=== PATIENT | female | born 1940 | race Caucasian/White ===

== ENCOUNTER 2024-11-09 09:14 | Inpatient (IN) | payer MEDICARE ==
[~2024-11-09] VITALS: Ht 157.5 cm; Wt 56.7 kg
[2024-11-09 09:55] LABS: PLATELET COUNT (AUTO) 268 K/uL (179-408); RED BLOOD CELL COUNT(AUTO) 5.02 MIL/uL (3.63-4.92); RED CELL DISTRIBUTION WIDTH 17.6 % (12.3-17.7); WHITE BLOOD COUNT (AUTO) 14.2 K/uL (3.8-11.8)
[2024-11-09] MEDS ORDERED: HYDROCODONE/APAP 5-325MG TABLET ONE (10:01)
[2024-11-09] MEDS: HYDROCODONE/APAP 5-325MG TABLET PO ONE (10:03)
[2024-11-09] MEDS ORDERED: LEVO75TA7 PO (10:05)
[2024-11-09] MEDS ORDERED: ASPI81TA31 PO (10:05)
[2024-11-09] MEDS ORDERED: ZOLP5TAB8 PO (10:05)
[2024-11-09] MEDS ORDERED: MELO-105 PO (10:05)
[2024-11-09] MEDS ORDERED: TRIA1CAP6 PO (10:05)
[2024-11-09 10:06] LABS: CREATININE 0.9 mg/dL (0.6-1.3); SODIUM SERUM 141 mmol/L (136-145); UREA NITROGEN, BLOOD 15 mg/dL (7-18)
[2024-11-09 10:12] LABS: ASPARTATE AMINOTRANSFERASE 12 U/L (15-37); TOTAL PROTEIN, SERUM 7.2 g/dL (6.4-8.2)
[2024-11-09] MEDS ORDERED: CHOL500062 PO (10:16)
[2024-11-09] MEDS ORDERED: NEOMY/BACITRA/POLYMYXIN B OINT UD PACKET TP ONE (11:12)
[2024-11-09] MEDS: MORPHINE SULFATE 4 MG/1 ML DISP.SYRIN IV ONE (15:15)
[2024-11-09] MEDS ORDERED: ONDANSETRON 4 MG/2 ML VIAL IV PRN (15:30)
[2024-11-09] MEDS ORDERED: MORPHINE SULFATE 4 MG/1 ML DISP.SYRIN ONE (17:10)
[2024-11-09] MEDS: ONDANSETRON 4 MG/2 ML VIAL IV ONE (17:18)
[2024-11-09 18:33] VITALS: BP 157/67; TEMP 98.1; O2SAT 95
[2024-11-09 19:00] VITALS: BP 144/55; TEMP 97.8; O2SAT 95
[2024-11-09] MEDS: MORPHINE SULFATE 2 MG/1 ML DISP.SYRIN IV PRN (21:38)
[2024-11-09] MEDS: IV NS 1000 ML 1,000 ML IV PRN (21:38)
[2024-11-09] MEDS: ENOXAPARIN SODIUM 40 MG/0.4 ML DISP.SYRIN SQ SCH (22:45)
[2024-11-10 06:35] VITALS: BP 121/77; TEMP 97.9; O2SAT 94
[2024-11-10 06:46] LABS: PLATELET COUNT (AUTO) 240 K/uL (179-408); RED BLOOD CELL COUNT(AUTO) 4.72 MIL/uL (3.63-4.92); RED CELL DISTRIBUTION WIDTH 17.5 % (12.3-17.7); WHITE BLOOD COUNT (AUTO) 12.4 K/uL (3.8-11.8)
[2024-11-10 07:10] LABS: CREATININE 0.7 mg/dL (0.6-1.3); SODIUM SERUM 141 mmol/L (136-145); UREA NITROGEN, BLOOD 11 mg/dL (7-18)
[2024-11-10] MEDS ORDERED: MELOXICAM 7.5 MG TABLET PO SCH (08:30)
[2024-11-10] MEDS: CHOLECALCIFEROL 1,000 UNIT TABLET PO SCH (08:58)
[2024-11-10] MEDS: ASPIRIN 81 MG TAB.CHEW PO SCH (08:58)
[2024-11-10] MEDS ORDERED: [UNRECOGNIZED DRUG - OTHER] PO SCH (09:00)
[2024-11-10] MEDS ORDERED: ZOLP6.252 PO (10:52)
[2024-11-10] MEDS: LEVOTHYROXINE SODIUM 75 MCG TABLET PO SCH (10:56)
[2024-11-10] MEDS: HYDROCODONE/APAP 5-325MG TABLET PO PRN (15:21)
[2024-11-10 16:14] VITALS: BP 141/62; TEMP 98.1; O2SAT 95
[2024-11-10 19:47] VITALS: BP 144/47; TEMP 98.2; O2SAT 91
[2024-11-11 05:00] VITALS: BP 158/65; TEMP 97.9; O2SAT 93
[2024-11-11 06:33] LABS: PLATELET COUNT (AUTO) 229 K/uL (179-408); RED BLOOD CELL COUNT(AUTO) 4.43 MIL/uL (3.63-4.92); RED CELL DISTRIBUTION WIDTH 17.7 % (12.3-17.7); WHITE BLOOD COUNT (AUTO) 11.2 K/uL (3.8-11.8)
[2024-11-11] MEDS ORDERED: VANCOMYCIN 1000 MG VIAL ONE (06:42)
[2024-11-11 06:43] LABS: CREATININE 0.6 mg/dL (0.6-1.3); SODIUM SERUM 140 mmol/L (136-145); UREA NITROGEN, BLOOD 8 mg/dL (7-18)
[2024-11-11] MEDS ORDERED: PROPOFOL 200 MG/20 ML BOTTLE ONE (07:00)
[2024-11-11] MEDS ORDERED: FENTANYL CITRATE 250 MCG/5 ML AMPUL ONE (07:23)
[2024-11-11] MEDS: SCOPOLAMINE PATCH 1 MG/72 HRS PATCH TD ONE (08:15)
[2024-11-11] MEDS ORDERED: SCOPOLAMINE PATCH 1 MG/72 HRS PATCH TD SCH (08:15)
[2024-11-11] MEDS ORDERED: LABETALOL HCL 100 MG/20 ML VIAL ONE (08:24)
[2024-11-11] MEDS: TRIAMTERENE/HCTZ 75-50 MG TABLET PO SCH (08:29)
[2024-11-11] MEDS ORDERED: FENTANYL CITRATE 100 MCG/2 ML AMPUL ONE ×2 (09:26→09:55)
[2024-11-11] MEDS: FENTANYL CITRATE 100 MCG/2 ML AMPUL IV PRN (09:35)
[2024-11-11 10:45] VITALS: BP 141/58
[2024-11-11] MEDS: MAGNESIUM SULFATE/D5W 100 ML IV SCH (11:10)
[2024-11-11] MEDS: IV D5W-0.45% NS +20 KCL 1,000 ML IV PRN (11:19)
[2024-11-11 11:40] VITALS: BP 147/69; TEMP 97.5; O2SAT 98
[2024-11-11] MEDS: MORPHINE SULFATE 4 MG/1 ML DISP.SYRIN IV PRN (13:22)
[2024-11-11] MEDS: CEFAZOLIN 1 G in IV DEXTROSE 5% 50 ML IV SCH (14:20)
[2024-11-11 15:33] VITALS: BP 120/53; TEMP 97.8; O2SAT 98
[2024-11-11 19:15] VITALS: BP 135/60; TEMP 98.9; O2SAT 95
[2024-11-11] MEDS: ZOLPIDEM 5 MG TABLET PO PRN (23:47)
[2024-11-11] MEDS: ACETAMINOPHEN 325 MG TABLET PO PRN (23:48)
[2024-11-12 06:07] VITALS: BP 138/71; TEMP 98.5; O2SAT 97
[2024-11-12 07:01] LABS: PLATELET COUNT (AUTO) 235 K/uL (179-408); RED BLOOD CELL COUNT(AUTO) 4.07 MIL/uL (3.63-4.92); RED CELL DISTRIBUTION WIDTH 17.5 % (12.3-17.7); WHITE BLOOD COUNT (AUTO) 11.5 K/uL (3.8-11.8)
[2024-11-12 07:16] LABS: CREATININE 0.5 mg/dL (0.6-1.3); SODIUM SERUM 139 mmol/L (136-145); UREA NITROGEN, BLOOD 6 mg/dL (7-18)
[2024-11-12] MEDS: ENOXAPARIN SODIUM 40 MG/0.4 ML DISP.SYRIN SQ SCH (08:24)
[2024-11-12] MEDS: HYDROCODONE/APAP 10-325 MG TABLET PO PRN (09:55)
[2024-11-12 11:55] VITALS: BP 129/68; TEMP 97.6; O2SAT 97
[2024-11-12] MEDS ORDERED: LEVO75TA7 PO (13:59)
[2024-11-12] MEDS ORDERED: CHOL100062 PO (13:59)
[2024-11-12] MEDS ORDERED: HYDR-3980 PO (13:59)
[2024-11-12] MEDS ORDERED: TEMA7.5C PO (13:59)
[2024-11-12] MEDS ORDERED: TRIA1TAB5 PO (13:59)
[2024-11-12] MEDS ORDERED: POLY17PO4 PO (13:59)
[2024-11-12] MEDS ORDERED: ENOX40DI SQ (13:59)
[2024-11-12] MEDS ORDERED: Morphine Sulfate Inj IV (13:59)
[2024-11-12] MEDS ORDERED: ASPI81TA31 PO (13:59)
[2024-11-12] MEDS ORDERED: TEMAZEPAM 7.5 MG CAPSULE PO PRN (14:00)
[2024-11-12] MEDS: MIRALAX 17 GM POWD.PACK PO SCH (14:13)
== END 2024-11-12 15:02 | DRG 522 ==
LOC: ER 09:14 → MEDSURG3 17:57
PROVIDERS: ADMIT Nurse Practitioner Acute Care; ATTEND Nurse Practitioner Acute Care
PROC: 05HC33Z Insertion of Infusion Device into Left Basilic Vein, Percutaneous Approach (ICD-10-PCS; 2024-11-10)
PROC: 0SRS0JA Replacement of Left Hip Joint, Femoral Surface with Synthetic Substitute, Uncemented, Open Approach (ICD-10-PCS; principal; 2024-11-11 07:30)
DX: S72.012A Unspecified intracapsular fracture of left femur, initial encounter for closed fracture (principal); D68.59 Other primary thrombophilia; C78.02 Secondary malignant neoplasm of left lung; W18.30XA Fall on same level, unspecified, initial encounter; Y93.E9 Activity, other interior property and clothing maintenance; D72.829 Elevated white blood cell count, unspecified; Z90.710 Acquired absence of both cervix and uterus; Z85.44 Personal history of malignant neoplasm of other female genital organs; Z85.3 Personal history of malignant neoplasm of breast; Z79.890 Hormone replacement therapy; Z79.82 Long term (current) use of aspirin; Z79.899 Other long term (current) drug therapy; Y92.019 Unspecified place in single-family (private) house as the place of occurrence of the external cause; Z88.6 Allergy status to analgesic agent; Z91.048 Other nonmedicinal substance allergy status; Z88.5 Allergy status to narcotic agent; Z74.09 Other reduced mobility; Z96.653 Presence of artificial knee joint, bilateral
CPT/HCPCS: 36415; 71045; 73501; 73502; 83735; 84100; 84484; 85025; 85730; 93307; A4606; A4663; G0378; J0360; J0461; J0690; J1650; J1885; J2270; J2405; J3010; J3373; J3475; J3490; J7040

== ENCOUNTER 2024-11-11 12:57 | Inpatient (IN) | payer MEDICARE ==
[~2024-11-11] VITALS: Ht 157.5 cm; Wt 56.7 kg
[~2024-11-11 12:57] MED LIST: ASPI81TA31 PO; CHOL500062 PO; LEVO75TA7 PO; TRIA1CAP6 PO; ZOLP6.252 PO
[2024-11-11 14:26] VITALS: BP 147/69; TEMP 97.5
[2024-11-11 14:55] VITALS: BP 147/69; TEMP 97.5
[2024-11-12] MEDS ORDERED: ENOX40DI SQ (13:59)
[2024-11-12] MEDS ORDERED: CHOL100062 PO (13:59)
[2024-11-12] MEDS ORDERED: POLY17PO4 PO (13:59)
[2024-11-12] MEDS ORDERED: ASPI81TA31 PO (13:59)
[2024-11-12] MEDS ORDERED: HYDR-3980 PO (13:59)
[2024-11-12] MEDS ORDERED: Morphine Sulfate Inj IV (13:59)
[2024-11-12] MEDS ORDERED: TRIA1TAB5 PO (13:59)
[2024-11-12] MEDS ORDERED: LEVO75TA7 PO (13:59)
[2024-11-12] MEDS ORDERED: TEMA7.5C PO (13:59)
[2024-11-12] MEDS ORDERED: MORPHINE SULFATE 4 MG/1 ML DISP.SYRIN IV PRN (15:45)
[2024-11-12 16:00] VITALS: BP 142/60; TEMP 98; O2SAT 96
[2024-11-12] MEDS: HYDROCODONE/APAP 10-325 MG TABLET PO PRN (18:38)
[2024-11-12 22:02] VITALS: BP 138/59; TEMP 98.3; O2SAT 99
[2024-11-13] MEDS: TEMAZEPAM 7.5 MG CAPSULE PO PRN (00:13)
[2024-11-13 06:11] VITALS: BP 128/63; TEMP 97.6; O2SAT 96
[2024-11-13] MEDS: LEVOTHYROXINE SODIUM 75 MCG TABLET PO SCH (06:14)
[2024-11-13 08:00] VITALS: BP 131/72; TEMP 97.6; O2SAT 97
[2024-11-13] MEDS: ASPIRIN 81 MG TAB.CHEW PO SCH (09:22)
[2024-11-13] MEDS: MIRALAX 17 GM POWD.PACK PO SCH (09:22)
[2024-11-13] MEDS: ENOXAPARIN SODIUM 40 MG/0.4 ML DISP.SYRIN SQ SCH (09:22)
[2024-11-13] MEDS: CHOLECALCIFEROL 1,000 UNIT TABLET PO SCH (09:22)
[2024-11-13] MEDS: TRIAMTERENE/HCTZ 75-50 MG TABLET PO SCH (09:41)
[2024-11-13 16:00] VITALS: BP 131/68; TEMP 98.2; O2SAT 97
[2024-11-13 21:21] VITALS: BP 118/55; TEMP 98.6; O2SAT 95
[2024-11-14 05:50] VITALS: BP 118/70; TEMP 97.5; O2SAT 95
[2024-11-14] MEDS ORDERED: MORPHINE SULFATE 4 MG/1 ML DISP.SYRIN IV PRN (07:15)
[2024-11-14 08:00] VITALS: BP 119/62; TEMP 98.6; O2SAT 93
[2024-11-14 11:30] VITALS: BP 123/66; TEMP 98.2; O2SAT 97
[2024-11-14 15:50] VITALS: BP 127/68; TEMP 98.1; O2SAT 100
[2024-11-14 20:07] VITALS: BP 116/59; TEMP 97.8; O2SAT 94
[2024-11-15 07:00] VITALS: BP 119/63; TEMP 97.6; O2SAT 93
[2024-11-15] MEDS: DOCUSATE SODIUM 100 MG CAPSULE PO SCH (09:01)
[2024-11-15 09:02] LABS: PLATELET COUNT (AUTO) 312 K/uL (179-408); RED BLOOD CELL COUNT(AUTO) 4.47 MIL/uL (3.63-4.92); RED CELL DISTRIBUTION WIDTH 16.9 % (12.3-17.7); WHITE BLOOD COUNT (AUTO) 12.5 K/uL (3.8-11.8)
[2024-11-15] MEDS: ENSURE ENLIVE (VAN) 240 ML LIQUID PO SCH (09:03)
[2024-11-15 09:20] LABS: ASPARTATE AMINOTRANSFERASE 8 U/L (15-37); CREATININE 0.7 mg/dL (0.6-1.3); SODIUM SERUM 133 mmol/L (136-145); TOTAL PROTEIN, SERUM 6.6 g/dL (6.4-8.2); UREA NITROGEN, BLOOD 18 mg/dL (7-18)
[2024-11-15 15:29] VITALS: BP 119/70; TEMP 97.7; O2SAT 94
[2024-11-15 23:24] VITALS: BP 144/64; TEMP 98; O2SAT 96
[2024-11-16 06:24] VITALS: BP 117/56; TEMP 97.7; O2SAT 95
[2024-11-16 07:28] LABS: PLATELET COUNT (AUTO) 321 K/uL (179-408); RED BLOOD CELL COUNT(AUTO) 4.20 MIL/uL (3.63-4.92); RED CELL DISTRIBUTION WIDTH 16.9 % (12.3-17.7); WHITE BLOOD COUNT (AUTO) 12.0 K/uL (3.8-11.8)
[2024-11-16 07:46] LABS: CREATININE 0.6 mg/dL (0.6-1.3); SODIUM SERUM 132 mmol/L (136-145); UREA NITROGEN, BLOOD 14 mg/dL (7-18)
[2024-11-16 07:57] VITALS: BP 129/53; TEMP 98.4; O2SAT 97
[2024-11-16 16:12] VITALS: BP 115/55; TEMP 98.4; O2SAT 95
[2024-11-16] MEDS: MAGNESIUM HYDROXIDE 30 ML LIQUID UDC PO PRN (16:30)
[2024-11-16] MEDS ORDERED: BISACODYL 5 MG TABLET.DR PO PRN (16:45)
[2024-11-16 21:26] VITALS: BP 128/77; TEMP 98.2; O2SAT 95
[2024-11-17 05:49] VITALS: BP 122/59; TEMP 97.8; O2SAT 9
[2024-11-17 08:00] VITALS: BP 121/64; TEMP 97; O2SAT 98
[2024-11-17 16:00] VITALS: BP 115/49; TEMP 97.6; O2SAT 97
[2024-11-17] MEDS: BISACODYL 5 MG TABLET.DR PO PRN (16:33)
[2024-11-17] MEDS: BISACODYL 10 MG SUPP.RECT RC PRN (20:28)
[2024-11-18 07:14] VITALS: BP 118/52; TEMP 97.3
[2024-11-18 18:44] VITALS: BP 125/56; TEMP 98; O2SAT 97
[2024-11-19 06:52] VITALS: BP 124/54; TEMP 98.4; O2SAT 97
[2024-11-19 07:48] VITALS: BP 142/56; TEMP 97.8; O2SAT 96
[2024-11-19 16:11] VITALS: BP 136/61; TEMP 98.1; O2SAT 98
[2024-11-19] MEDS: ATORVASTATIN 40 MG TABLET PO SCH (21:31)
[2024-11-20 06:00] VITALS: BP 158/62; TEMP 97.4; O2SAT 95
[2024-11-20] MEDS: LOSARTAN POTASSIUM 50 MG TABLET PO SCH (08:11)
[2024-11-20] MEDS: AMLODIPINE 5 MG TABLET PO SCH (08:12)
[2024-11-20 08:22] VITALS: BP 137/65; TEMP 97.8; O2SAT 96
[2024-11-20 16:05] VITALS: BP 134/57; TEMP 98.5; O2SAT 95
[2024-11-21 05:44] VITALS: BP 126/52; TEMP 98.2; O2SAT 97
[2024-11-21 06:48] VITALS: BP 124/56; TEMP 98; O2SAT 97
[2024-11-21 07:46] VITALS: BP 148/61; TEMP 97.7; O2SAT 98
[2024-11-21 18:07] VITALS: BP 116/60; TEMP 98; O2SAT 96
[2024-11-21 21:29] VITALS: BP 127/58; TEMP 98.2; O2SAT 97
[2024-11-22 06:09] VITALS: BP 130/62; TEMP 98.3; O2SAT 96
[2024-11-22 07:46] VITALS: BP 142/52; TEMP 97.9; O2SAT 96
[2024-11-22 13:03] VITALS: BP 110/56; TEMP 97.7; O2SAT 98
== END 2024-11-22 14:10 | disposition home health service (06) | DRG 560 ==
PROVIDERS: ADMIT Physical Medicine & Rehabilitation Pain Medicine; ATTEND Physical Medicine & Rehabilitation Pain Medicine
DX: Z47.1 Aftercare following joint replacement surgery (principal); C34.90 Malignant neoplasm of unspecified part of unspecified bronchus or lung; D68.59 Other primary thrombophilia; Z96.642 Presence of left artificial hip joint; Z85.3 Personal history of malignant neoplasm of breast; Z85.44 Personal history of malignant neoplasm of other female genital organs; Z96.651 Presence of right artificial knee joint; Z91.81 History of falling; Z90.710 Acquired absence of both cervix and uterus; W19.XXXD Unspecified fall, subsequent encounter; Z88.5 Allergy status to narcotic agent
CPT/HCPCS: 36415; 73502; 83735; 84100; 85025; 93005; 97535-GO-CO; J1650